=== PATIENT | female | born 1990 | race Caucasian/White ===

== ENCOUNTER 2017-07-27 07:42 | Emergency (ER) | payer OTHER ==
[~2017-07-27] VITALS: Ht 162.6 cm; Wt 97.0 kg
[~2017-07-27 07:42] MED LIST: AMOXICILLIN500 MG PO; DIFLUCAN150 MG PO; MACROBID100 MG PO; NAPROSYN500 MG PO; SPRINTEC PO; TYLENOL # 31 TA1 PO
[2017-07-27 08:23] LABS: URINE BILIRUBIN - DIPSTICK NEGATIVE (NEGATIVE); URINE COLOR YELLOW; URINE GLUCOSE - DIPSTICK NEGATIVE (NEGATIVE); URINE KETONE NEGATIVE (NEGATIVE); URINE UROBILINOGEN - DIPSTICK 0.2 E.U./dL (0.2)
[2017-07-27 08:25] LABS: URINE CLARITY HAZY
[2017-07-27 08:26] LABS: URINE BLOOD DIPSTICK TRACE (NEGATIVE); URINE EPITHELIAL CELLS MODERATE EPI/hpf (0-FEW); URINE LEUK ESTERASE MODERATE (NEGATIVE); URINE NITRITE - DIPSTICK NEGATIVE (Negative); URINE PROTEIN - DIPSTICK NEGATIVE (NEG-TRACE); URINE WBC 20-50 WBC/hpf (0-5)
[2017-07-27 08:27] LABS: URINE BACTERIA MODERATE hpf
[2017-07-27] MEDS ORDERED: CEPHALEXIN500 MG PO (08:54)
[2017-07-27] MEDS ORDERED: DIFLUCAN150 MG PO (08:54)
[2017-07-27 10:34] VITALS: BP 139/78
== END 2017-07-27 10:41 | disposition home or self-care (01) | DRG 690 ==
LOC: ED 07:42
PROVIDERS: Family Medicine
DX: N39.0 Urinary tract infection, site not specified (principal); B37.3 Candidiasis of vulva and vagina; M79.662 Pain in left lower leg; J45.909 Unspecified asthma, uncomplicated; N89.8 Other specified noninflammatory disorders of vagina; I10 Essential (primary) hypertension; R30.0 Dysuria

== ENCOUNTER 2017-11-07 07:31 | Emergency (ER) | payer OTHER ==
[~2017-11-07] VITALS: Ht 162.6 cm; Wt 110.0 kg
[~2017-11-07 07:31] MED LIST changes: +CEPHALEXIN500 MG PO
[2017-11-07] MEDS ORDERED: HYDROCHLOROT25 MG PO (07:44)
[2017-11-07 07:51] LABS: URINE BILIRUBIN - DIPSTICK NEGATIVE (NEGATIVE); URINE BLOOD DIPSTICK LARGE (NEGATIVE); URINE GLUCOSE - DIPSTICK NEGATIVE (NEGATIVE); URINE KETONE NEGATIVE (NEGATIVE); URINE NITRITE - DIPSTICK NEGATIVE (Negative); URINE PH 6.5 (4.5-8.0); URINE PROTEIN - DIPSTICK 30 mg/dL (NEG-TRACE); URINE UROBILINOGEN - DIPSTICK 0.2 E.U./dL (0.2)
[2017-11-07 07:56] LABS: URINE CLARITY CLOUDY; URINE COLOR RED; URINE LEUK ESTERASE SMALL (NEGATIVE)
[2017-11-07 07:58] LABS: URINE RBC TNTC RBC/hpf (0-5); URINE SQUAMOUS EPITHELIAL CELL FEW EPI/hpf (0-FEW)
[2017-11-07] MEDS ORDERED: CEPHALEXIN500 M1 PO (08:03)
[2017-11-07] MEDS ORDERED: MOTRIN400 MG PO (08:07)
[2017-11-07 08:12] VITALS: BP 135/101
== END 2017-11-07 08:23 | disposition home or self-care (01) | DRG 690 ==
LOC: ED 07:31
PROVIDERS: Family Medicine
DX: N39.0 Urinary tract infection, site not specified (principal); B96.20 Unspecified Escherichia coli [E. coli] as the cause of diseases classified elsewhere; R30.0 Dysuria

== ENCOUNTER 2019-04-12 22:58 | Emergency (ER) | payer SELFPAY ==
[~2019-04-12] VITALS: Ht 162.6 cm; Wt 100.0 kg
[~2019-04-12 22:58] MED LIST changes: +CEPHALEXIN500 M1 PO; +HYDROCHLOROT25 MG PO; +MOTRIN400 MG PO
[2019-04-12 23:19] LABS: URINE BILIRUBIN - DIPSTICK NEGATIVE (NEGATIVE); URINE BLOOD DIPSTICK NEGATIVE (NEGATIVE); URINE COLOR YELLOW; URINE GLUCOSE - DIPSTICK NEGATIVE (NEGATIVE); URINE KETONE NEGATIVE (NEGATIVE); URINE LEUK ESTERASE TRACE (NEGATIVE); URINE NITRITE - DIPSTICK NEGATIVE (Negative); URINE PH 5.5 (4.5-8.0); URINE PROTEIN - DIPSTICK NEGATIVE (NEG-TRACE); URINE SPECIFIC GRAVITY 1.015; URINE UROBILINOGEN - DIPSTICK 0.2 E.U./dL (0.2)
[2019-04-12] MEDS ORDERED: DOXYCYCL HYC100 MG PO (23:37)
[2019-04-12 23:46] VITALS: BP 133/90
== END 2019-04-12 23:53 | disposition home or self-care (01) | DRG 690 ==
LOC: ED 22:58
PROVIDERS: Family Medicine
DX: N34.2 Other urethritis (principal); I10 Essential (primary) hypertension